=== PATIENT | male | born 1970 | race Caucasian/White ===

== ENCOUNTER 2017-04-08 09:30 | Emergency (ER) | payer MEDICARE ==
[~2017-04-08] VITALS: Ht 180.3 cm; Wt 162.4 kg
[~2017-04-08 09:30] MED LIST: ACCUPRIL5 MG PO; ADLT ASA LOW81 MG PO; ADVAIR DISK1 IN; ASA LO-DOSE81 MG OR; ASPIRIN ADULT L81 MG PO; ASPIRIN EC325 MG PO; BACTRIM DS1 TAB PO; COMBIVENT IN; COREG6.25 MG OR; COREG6.25 MG PO; DEPO-MEDROL80 MG/ML IM; DOCUSATE SOD100 MG PO; FLEXERIL OR; FLEXERIL PO; FLEXERIL5 MG PO; FLOMAX0.4 M1 PO; HUMALOG KW75 MG/25 K SC; INVANZ1 GM IV; KLOR-CON 1010 MEQ PO; LASIX40 MG PO; LEVEMIR FLEXPEN SC; LIPITOR10 MG OR; LISINOPRIL10 MG PO; LOMOTIL2.5 MG PO; LORTAB 10 OR; LORTAB 10-325 M1 TAB PO; LORTAB 1010 MG PO; LORTAB 5 OR; LORTAB 7.5 OR; LORTAB5 PO; NAPROSYN375 MG PO; NAPROSYN500 MG PO; NAPROXEN500 MG PO; NITROGLYCER0.4 MG SL; NITROSTAT0.4 MG PO; NOVOLIN 70/30 SC; ONDANSETRON4 MG PO; PENICILLN VK500 MG PO; PERCOCET 5/325M1 TAB OR; PRINIVIL20 MG OR; SERTRALINE50 MG PO; TAM75CAP OR; ULTRAM50 M1 PO; VENTOLIN HFA IN; WARFARIN10 MG PO; ZOFRAN ODT8 MG PO; [UNRECOGNIZED DRUG - REMARK] PO
[2017-04-08 10:12] LABS: URINE BLOOD DIPSTICK LARGE (NEGATIVE); URINE GLUCOSE - DIPSTICK NEGATIVE (NEGATIVE); URINE KETONE NEGATIVE (NEGATIVE); URINE LEUK ESTERASE NEGATIVE (NEGATIVE); URINE NITRITE - DIPSTICK NEGATIVE (Negative); URINE PROTEIN - DIPSTICK 100 mg/dL (NEG-TRACE); URINE SPECIFIC GRAVITY >=1.030; URINE UROBILINOGEN - DIPSTICK 0.2 E.U./dL (0.2)
[2017-04-08 10:15] LABS: URINE BILIRUBIN - DIPSTICK NEGATIVE (NEGATIVE); URINE CLARITY HAZY; URINE COLOR DK. YELLOW
[2017-04-08 10:20] LABS: ALBUMIN 3.7 g/dL (3.2-5.0); ALKALINE PHOSPHATASE 55 u/l (38-126); ANION GAP 15 (6-22 (CALC)); BILIRUBIN, TOTAL 0.4 mg/dL (0.0-1.4); BUN 10 mg/dL (9-20); BUN/CREATININE RATIO 8 (12-20 (CALC)); CALCIUM 8.9 mg/dL (8.4-10.2); CARBON DIOXIDE 25 mmol/l (22-30); CHLORIDE 105 mmol/l (95-108); CREATININE 1.2 mg/dL (0.7-1.3); GFR > 60 ML/MIN (>=60 (CALC)); GFR FOR AFR.AMER. > 60 ML/MIN (>=60 (CALC)); GLUCOSE 166 mg/dL (75-110); POTASSIUM 4.4 mmol/l (3.5-5.1); SGOT/AST 15 u/l (17-59); SGPT/ALT 38 u/l (21-72); SODIUM 141 mmol/l (137-146); TOTAL PROTEIN 6.9 g/dL (6.3-8.2)
[2017-04-08 10:22] LABS: URINE RBC 50-100 RBC/hpf (0-5); URINE WBC 0-2 WBC/hpf (0-5)
[2017-04-08 10:25] LABS: HEMATOCRIT 44.1 % (39.0-50.0); HEMOGLOBIN 15.3 g/dl (14.0-18.0); IMMATURE GRANULOCYTES 0.3 % (0.0-1.0); MEAN CELL VOLUME 85.6 fL CALC (80.0-100.0); MEAN CORPUSCULAR HGB 29.7 pG CALC (26.0-32.0); MEAN CORPUSCULAR HGB CONC 34.7 g/L CALC (32.0-36.0); NEUT# 5.98 thou/uL (1.82-7.42); RED BLOOD COUNT 5.15 mill/uL (4.70-6.10); RED CELL DISTRI WIDTH 12.9 % (11.5-15.5)
[2017-04-08] MEDS ORDERED: HUMULIN 70/30 SC ×2 (10:54)
[2017-04-08] MEDS ORDERED: TRULICITY0.75 MG/0. SC (10:57)
[2017-04-08] MEDS ORDERED: VENLAFAXINE HCL75 M1 PO (10:58)
[2017-04-08] MEDS ORDERED: LOSARTAN POT50 MG PO (11:00)
[2017-04-08] MEDS ORDERED: ULTRAM50 M1 PO (11:41)
[2017-04-08 11:44] VITALS: BP 162/75
== END 2017-04-08 11:56 | disposition home or self-care (01) ==
LOC: ED 09:30
PROVIDERS: Emergency Medicine
DX: R16.2 Hepatomegaly with splenomegaly, not elsewhere classified (principal); N21.0 Calculus in bladder; R10.32 Left lower quadrant pain; M54.5 Low back pain; Z87.442 Personal history of urinary calculi; F17.210 Nicotine dependence, cigarettes, uncomplicated
CPT/HCPCS: Q9967

== ENCOUNTER 2017-05-08 13:01 | Emergency (ER) | payer MEDICARE ==
[~2017-05-08] VITALS: Ht 180.3 cm; Wt 162.0 kg
[~2017-05-08 13:01] MED LIST changes: +HUMULIN 70/30 SC; +LOSARTAN POT50 MG PO; +TRULICITY0.75 MG/0. SC; +VENLAFAXINE HCL75 M1 PO
[2017-05-08 13:25] LABS: HEMATOCRIT 43.8 % (39.0-50.0); IMMATURE GRANULOCYTES 0.4 % (0.0-1.0); MEAN CELL VOLUME 85.7 fL CALC (80.0-100.0); MEAN CORPUSCULAR HGB 29.4 pG CALC (26.0-32.0); MEAN CORPUSCULAR HGB CONC 34.2 g/L CALC (32.0-36.0); NEUT# 8.8 thou/uL (1.82-7.42); RED BLOOD COUNT 5.11 mill/uL (4.70-6.10); RED CELL DISTRI WIDTH 12.6 % (11.5-15.5)
[2017-05-08 13:38] LABS: ALKALINE PHOSPHATASE 59 u/l (38-126); ANION GAP 12 (6-22 (CALC)); BILIRUBIN, TOTAL 0.7 mg/dL (0.0-1.4); BUN 7 mg/dL (9-20); BUN/CREATININE RATIO 9 (12-20 (CALC)); CALCIUM 9.2 mg/dL (8.4-10.2); CARBON DIOXIDE 29 mmol/l (22-30); CHLORIDE 98 mmol/l (95-108); CREATININE 0.8 mg/dL (0.7-1.3); GFR > 60 ML/MIN (>=60 (CALC)); GFR FOR AFR.AMER. > 60 ML/MIN (>=60 (CALC)); GLUCOSE 157 mg/dL (75-110); SGOT/AST 37 u/l (17-59); SGPT/ALT 38 u/l (21-72); SODIUM 135 mmol/l (137-146); TOTAL PROTEIN 7.6 g/dL (6.3-8.2)
[2017-05-08 13:50] LABS: MYOGLOBIN 160 ng/mL (0 - 121)
[2017-05-08 14:30] VITALS: BP 163/91
== END 2017-05-08 14:10 | disposition short-term general hospital (02) ==
LOC: ED 13:01
PROVIDERS: Emergency Medicine
DX: I21.09 ST elevation (STEMI) myocardial infarction involving other coronary artery of anterior wall (principal); E11.9 Type 2 diabetes mellitus without complications; J44.9 Chronic obstructive pulmonary disease, unspecified; I10 Essential (primary) hypertension; F17.210 Nicotine dependence, cigarettes, uncomplicated; Z86.718 Personal history of other venous thrombosis and embolism; Z86.73 Personal history of transient ischemic attack (TIA), and cerebral infarction without residual deficits; Z79.4 Long term (current) use of insulin
CPT/HCPCS: J1650

== ENCOUNTER 2018-01-14 08:40 | Emergency (ER) | payer MEDICARE ==
[~2018-01-14] VITALS: Ht 180.3 cm; Wt 160.0 kg
[2018-01-14] MEDS ORDERED: CEPHALEXIN500 M1 PO (08:50)
[2018-01-14] MEDS ORDERED: BACTRIM DS1 TAB PO (08:50)
[2018-01-14] MEDS ORDERED: LEVAQUIN750 M1 PO (08:50)
[2018-01-14 09:08] VITALS: BP 131/74
[2018-01-14] MEDS ORDERED: MOTRIN400 MG PO (09:23)
== END 2018-01-14 09:15 | disposition home or self-care (01) ==
LOC: ED 08:40
DX: S91.331A Puncture wound without foreign body, right foot, initial encounter (principal); W45.0XXA Nail entering through skin, initial encounter; Y93.89 Activity, other specified; Y92.219 Unspecified school as the place of occurrence of the external cause

== ENCOUNTER 2018-03-29 08:50 | Observation (INO) | payer MEDICARE, MEDICAID ==
[~2018-03-29] VITALS: Ht 180.3 cm; Wt 163.0 kg
[~2018-03-29 08:50] MED LIST changes: +CEPHALEXIN500 M1 PO; +LEVAQUIN750 M1 PO; +MOTRIN400 MG PO
[2018-03-29 09:12] LABS: HEMOGLOBIN 16.7 g/dl (14.0-18.0); IMMATURE GRANULOCYTES 0.3 % (0.0-1.0); MEAN CELL VOLUME 86.3 fL CALC (80.0-100.0); MEAN CORPUSCULAR HGB 28.6 pG CALC (26.0-32.0); MEAN CORPUSCULAR HGB CONC 33.2 g/L CALC (32.0-36.0); NEUT# 9.35 thou/uL (1.82-7.42); RED BLOOD COUNT 5.83 mill/uL (4.70-6.10); RED CELL DISTRI WIDTH 13.8 % (11.5-15.5)
[2018-03-29 09:13] LABS: HEMATOCRIT 50.3 % (39.0-50.0)
[2018-03-29 09:53] LABS: ANION GAP 12 (6-22 (CALC)); BUN 12 mg/dL (9-20); BUN/CREATININE RATIO 14 (12-20 (CALC)); CARBON DIOXIDE 28 mmol/l (22-30); CHLORIDE 100 mmol/l (95-108); CREATININE 0.8 mg/dL (0.7-1.3); GFR > 60 ML/MIN (>=60 (CALC)); GFR FOR AFR.AMER. > 60 ML/MIN (>=60 (CALC)); POTASSIUM 4.1 mmol/l (3.5-5.1); SODIUM 136 mmol/l (137-146)
[2018-03-29] MEDS ORDERED: ASPIRIN325 MG PO (10:11)
[2018-03-29] MEDS ORDERED: ATORVASTATIN CA80 MG PO (10:12)
[2018-03-29] MEDS ORDERED: ATROVENT H17 MCG/ACT IN (10:13)
[2018-03-29] MEDS ORDERED: CLOPIDOGREL75 MG PO (10:14)
[2018-03-29] MEDS ORDERED: COMBIVENT RESPIMAT IN (10:14)
[2018-03-29] MEDS ORDERED: ENTRESTO 49-511 TAB PO (10:16)
[2018-03-29] MEDS ORDERED: HUMULIN 70/30 K1 INJ SC (10:17)
[2018-03-29] MEDS ORDERED: LYRICA25 MG PO (10:19)
[2018-03-29] MEDS ORDERED: METO50TA52 PO (10:19)
[2018-03-29] MEDS ORDERED: RANITIDINE150 M1 PO (10:20)
[2018-03-29] MEDS ORDERED: TRULICITY1.5 MG/0.5 SC (10:21)
[2018-03-29] MEDS ORDERED: VENTOLIN HFA IN (10:25)
[2018-03-29 11:00] VITALS: BP 122/73
[2018-03-29 11:23] LABS: MAGNESIUM 1.4 mg/dL (1.6-2.3)
[2018-03-29 12:25] VITALS: BP 157/84
[2018-03-29 15:29] VITALS: BP 165/98
[2018-03-29 19:00] VITALS: BP 140/82
[2018-03-30 00:33] VITALS: BP 144/98
[2018-03-30 05:01] VITALS: BP 163/97
[2018-03-30 06:33] LABS: CHOLESTEROL HDL RATIO 3.7 (<4.4 (CALC))
[2018-03-30 07:36] VITALS: BP 169/96
[2018-03-30 08:25] LABS: HEMATOCRIT 50.9 % (39.0-50.0); HEMOGLOBIN 17.2 g/dl (14.0-18.0); IMMATURE GRANULOCYTES 0.4 % (0.0-1.0); MEAN CELL VOLUME 86.3 fL CALC (80.0-100.0); MEAN CORPUSCULAR HGB 29.2 pG CALC (26.0-32.0); MEAN CORPUSCULAR HGB CONC 33.8 g/L CALC (32.0-36.0); NEUT# 7.56 thou/uL (1.82-7.42); RED BLOOD COUNT 5.9 mill/uL (4.70-6.10); RED CELL DISTRI WIDTH 13.7 % (11.5-15.5)
[2018-03-30 08:58] VITALS: BP 169/96
== END 2018-03-30 12:05 | disposition home or self-care (01) ==
LOC: ED 08:50 → ED-I 09:15 → ED 10:12 → MS2 10:13
PROVIDERS: Family Medicine; Nurse Practitioner Family; ADMIT Internal Medicine; ATTEND Internal Medicine
DX: R07.89 Other chest pain (principal); I11.0 Hypertensive heart disease with heart failure; I50.9 Heart failure, unspecified; I25.10 Atherosclerotic heart disease of native coronary artery without angina pectoris; J44.9 Chronic obstructive pulmonary disease, unspecified; F17.210 Nicotine dependence, cigarettes, uncomplicated; I25.2 Old myocardial infarction; E11.65 Type 2 diabetes mellitus with hyperglycemia; E11.40 Type 2 diabetes mellitus with diabetic neuropathy, unspecified; Z68.43 Body mass index [BMI] 50.0-59.9, adult; Z79.84 Long term (current) use of oral hypoglycemic drugs; Z95.5 Presence of coronary angioplasty implant and graft; R06.2 Wheezing

== ENCOUNTER 2018-06-04 11:10 | Emergency (ER) | payer MEDICARE, MEDICAID ==
[~2018-06-04] VITALS: Ht 180.3 cm; Wt 163.6 kg
[~2018-06-04 11:10] MED LIST changes: +ASPIRIN325 MG PO; +ATORVASTATIN CA80 MG PO; +ATROVENT H17 MCG/ACT IN; +CLOPIDOGREL75 MG PO; +COMBIVENT RESPIMAT IN; +ENTRESTO 49-511 TAB PO; +HUMULIN 70/30 K1 INJ SC; +LYRICA25 MG PO; +METO50TA52 PO; +RANITIDINE150 M1 PO; +TRULICITY1.5 MG/0.5 SC
[2018-06-04] MEDS ORDERED: IBUPROFEN600 MG PO (15:39)
[2018-06-04] MEDS ORDERED: ORPHENADRINE100 MG PO (15:39)
[2018-06-04 16:47] VITALS: BP 177/86
== END 2018-06-04 16:57 | disposition home or self-care (01) ==
LOC: ED 11:10
DX: M54.6 Pain in thoracic spine (principal); I11.0 Hypertensive heart disease with heart failure; I50.9 Heart failure, unspecified; I25.10 Atherosclerotic heart disease of native coronary artery without angina pectoris; E11.9 Type 2 diabetes mellitus without complications; J44.9 Chronic obstructive pulmonary disease, unspecified; Z95.5 Presence of coronary angioplasty implant and graft; F17.210 Nicotine dependence, cigarettes, uncomplicated; E66.9 Obesity, unspecified; W01.0XXA Fall on same level from slipping, tripping and stumbling without subsequent striking against object, initial encounter; Y92.009 Unspecified place in unspecified non-institutional (private) residence as the place of occurrence of the external cause; Z91.81 History of falling

== ENCOUNTER 2018-09-03 07:54 | Emergency (ER) | payer MEDICARE ==
[~2018-09-03] VITALS: Ht 180.3 cm; Wt 163.6 kg
[~2018-09-03 07:54] MED LIST changes: +IBUPROFEN600 MG PO; +ORPHENADRINE100 MG PO
[2018-09-03] MEDS ORDERED: ATROVENT H17 MCG/ACT IN (08:35)
[2018-09-03 09:09] LABS: HEMATOCRIT 48.9 % (39.0-50.0); HEMOGLOBIN 16.5 g/dl (14.0-18.0); IMMATURE GRANULOCYTES 0.5 % (0.0-5.0); MEAN CELL VOLUME 87.9 fL CALC (80.0-100.0); MEAN CORPUSCULAR HGB 29.7 pG CALC (26.0-32.0); MEAN CORPUSCULAR HGB CONC 33.7 g/L CALC (32.0-36.0); NEUT# 5.68 thou/uL (1.82-7.42); RED BLOOD COUNT 5.56 mill/uL (4.70-6.10); RED CELL DISTRI WIDTH 13.3 % (11.5-15.5)
[2018-09-03 09:10] LABS: ALBUMIN 3.5 g/dL (3.2-5.0); BILIRUBIN, TOTAL 0.4 mg/dL (0.0-1.4); BUN 16 mg/dL (9-20); BUN/CREATININE RATIO 21 (12-20 (CALC)); C-REACTIVE PROTEIN 1.2 mg/dL (0-0.9); CARBON DIOXIDE 27 mmol/l (22-30); CHLORIDE 101 mmol/l (95-108); CREATININE 0.8 mg/dL (0.7-1.3); GFR > 60 ML/MIN (>=60 (CALC)); GFR FOR AFR.AMER. > 60 ML/MIN (>=60 (CALC)); SGOT/AST 17 u/l (17-59); SODIUM 136 mmol/l (137-146); TOTAL PROTEIN 6.9 g/dL (6.3-8.2)
[2018-09-03 09:13] LABS: ANION GAP 13 (6-22 (CALC))
[2018-09-03 09:14] LABS: ALKALINE PHOSPHATASE 89 u/l (38-126); POTASSIUM 5.2 mmol/l (3.5-5.1)
[2018-09-03] MEDS ORDERED: TORADOL PO (09:48)
[2018-09-03] MEDS ORDERED: CLEOCIN300 MG PO (09:48)
[2018-09-03 10:10] VITALS: BP 160/87
== END 2018-09-03 10:17 | disposition home or self-care (01) ==
LOC: ED 07:54
PROVIDERS: Emergency Medicine
DX: L03.032 Cellulitis of left toe (principal); E11.65 Type 2 diabetes mellitus with hyperglycemia; Z79.4 Long term (current) use of insulin; F17.210 Nicotine dependence, cigarettes, uncomplicated; I10 Essential (primary) hypertension
CPT/HCPCS: J0131

== ENCOUNTER 2018-12-03 18:36 | Emergency (ER) | payer MEDICARE ==
[~2018-12-03] VITALS: Ht 180.3 cm; Wt 159.1 kg
[~2018-12-03 18:36] MED LIST changes: +CLEOCIN300 MG PO; +TORADOL PO
[2018-12-03 19:30] LABS: HEMATOCRIT 46.5 % (39.0-50.0); IMMATURE GRANULOCYTES 0.3 % (0.0-5.0); MEAN CELL VOLUME 87.2 fL CALC (80.0-100.0); MEAN CORPUSCULAR HGB CONC 34.4 g/L CALC (32.0-36.0); NEUT# 6.48 thou/uL (1.82-7.42); RED BLOOD COUNT 5.33 mill/uL (4.70-6.10); RED CELL DISTRI WIDTH 13.2 % (11.5-15.5)
[2018-12-03 19:43] LABS: ALBUMIN 3.2 g/dL (3.2-5.0); ALKALINE PHOSPHATASE 81 u/l (38-126); ANION GAP 14 (6-22 (CALC)); BILIRUBIN, TOTAL 0.5 mg/dL (0.0-1.4); BUN 12 mg/dL (9-20); BUN/CREATININE RATIO 16 (12-20 (CALC)); CARBON DIOXIDE 26 mmol/l (22-30); CHLORIDE 101 mmol/l (95-108); CREATININE 0.8 mg/dL (0.7-1.3); GFR > 60 ML/MIN (>=60 (CALC)); GFR FOR AFR.AMER. > 60 ML/MIN (>=60 (CALC)); POTASSIUM 3.9 mmol/l (3.5-5.1); SGOT/AST 10 u/l (17-59); SODIUM 137 mmol/l (137-146); TOTAL PROTEIN 6.1 g/dL (6.3-8.2)
[2018-12-03 19:53] LABS: ACT PARTIAL THROMBO TIME 25.4 SECONDS (20.0-32.5)
[2018-12-03 19:55] LABS: PROTHROMBIN TIME 10.5 SECONDS (9.0-12.5)
[2018-12-03 20:07] VITALS: BP 176/97
== END 2018-12-03 20:07 | disposition home or self-care (01) ==
LOC: ED 18:36
PROVIDERS: Family Medicine
DX: R04.0 Epistaxis (principal); I25.10 Atherosclerotic heart disease of native coronary artery without angina pectoris; E11.9 Type 2 diabetes mellitus without complications; J44.9 Chronic obstructive pulmonary disease, unspecified; I11.0 Hypertensive heart disease with heart failure; I50.9 Heart failure, unspecified; F17.210 Nicotine dependence, cigarettes, uncomplicated; Z95.5 Presence of coronary angioplasty implant and graft

== ENCOUNTER 2019-03-16 08:41 | Emergency (ER) | payer MEDICARE, MEDICAID ==
[~2019-03-16] VITALS: Ht 180.3 cm; Wt 172.2 kg
[2019-03-16 09:17] LABS: HEMATOCRIT 46.2 % (39.0-50.0); HEMOGLOBIN 15.2 g/dl (14.0-18.0); IMMATURE GRANULOCYTES 0.5 % (0.0-5.0); MEAN CELL VOLUME 90.2 fL CALC (80.0-100.0); MEAN CORPUSCULAR HGB 29.7 pG CALC (26.0-32.0); MEAN CORPUSCULAR HGB CONC 32.9 g/L CALC (32.0-36.0); NEUT# 5.34 thou/uL (1.82-7.42); RED BLOOD COUNT 5.12 mill/uL (4.70-6.10)
[2019-03-16 09:30] VITALS: BP 168/77
[2019-03-16 09:41] LABS: ALBUMIN 3.3 g/dL (3.2-5.0); ALKALINE PHOSPHATASE 78 u/l (38-126); BILIRUBIN, TOTAL 0.4 mg/dL (0.0-1.4); BUN 9 mg/dL (9-20); BUN/CREATININE RATIO 11 (12-20 (CALC)); CARBON DIOXIDE 26 mmol/l (22-30); CHLORIDE 101 mmol/l (95-108); CREATININE 0.8 mg/dL (0.7-1.3); GFR > 60 ML/MIN (>=60 (CALC)); GFR FOR AFR.AMER. > 60 ML/MIN (>=60 (CALC)); SGOT/AST 12 u/l (17-59); SODIUM 136 mmol/l (137-146); TOTAL PROTEIN 6.1 g/dL (6.3-8.2)
[2019-03-16 09:44] LABS: ANION GAP 14 (6-22 (CALC))
[2019-03-16 09:45] LABS: POTASSIUM 4.7 mmol/l (3.5-5.1)
[2019-03-16] MEDS ORDERED: DOXYCYCL HYC100 MG PO (10:00)
== END 2019-03-16 10:26 | disposition home or self-care (01) ==
LOC: ED 08:41
PROVIDERS: Family Medicine
DX: L03.116 Cellulitis of left lower limb (principal); I87.8 Other specified disorders of veins; M79.662 Pain in left lower leg; F17.200 Nicotine dependence, unspecified, uncomplicated; E11.9 Type 2 diabetes mellitus without complications; Z79.4 Long term (current) use of insulin; W22.8XXA Striking against or struck by other objects, initial encounter; Y92.009 Unspecified place in unspecified non-institutional (private) residence as the place of occurrence of the external cause

== ENCOUNTER 2019-12-21 | Emergency (ER) | payer MEDICARE, MEDICAID ==
[~2019-12-21] MED LIST changes: +DOXYCYCL HYC100 MG PO; -METO50TA52 PO; +TOPROL XL50 MG PO
[2019-12-21] MEDS ORDERED: KEFLEX500 M1 PO (10:28)
[2019-12-21] MEDS ORDERED: VOLTAREN - GENE75 MG PO (10:28)
== END 2019-12-21 11:12 | disposition home or self-care (01) ==
DX: L03.012 Cellulitis of left finger (principal); M77.9 Enthesopathy, unspecified; S61.215A Laceration without foreign body of left ring finger without damage to nail, initial encounter; I25.10 Atherosclerotic heart disease of native coronary artery without angina pectoris; I11.0 Hypertensive heart disease with heart failure; I50.9 Heart failure, unspecified; J44.9 Chronic obstructive pulmonary disease, unspecified; E11.9 Type 2 diabetes mellitus without complications; F17.200 Nicotine dependence, unspecified, uncomplicated; X58.XXXA Exposure to other specified factors, initial encounter; Z79.4 Long term (current) use of insulin

== ENCOUNTER 2020-01-21 | Emergency (ER) | payer MEDICARE, MEDICAID ==
[~2020-01-21] MED LIST changes: +KEFLEX500 M1 PO; +VOLTAREN - GENE75 MG PO
[2020-01-21] MEDS ORDERED: TOUJEO MAX300 UNIT/M SC (12:47)
[2020-01-21] MEDS ORDERED: METFORMIN500 M2 PO (12:47)
[2020-01-21] MEDS ORDERED: AMOXICILLIN875 MG PO (13:53)
--- NOTE | 2020-01-26 09:08 | NUR ---
Notified patient of Covid results (Negative). Advised patient to follow up with PCP or return to ED with urgent needs. Advised pt to continue practicing Covid prevention including social distancing and hand washing.
== END 2020-01-21 14:03 | disposition home or self-care (01) ==
DX: J02.9 Acute pharyngitis, unspecified (principal); J44.9 Chronic obstructive pulmonary disease, unspecified; I11.0 Hypertensive heart disease with heart failure; I50.9 Heart failure, unspecified; E11.9 Type 2 diabetes mellitus without complications; I25.10 Atherosclerotic heart disease of native coronary artery without angina pectoris; F17.210 Nicotine dependence, cigarettes, uncomplicated; Z20.828 Contact with and (suspected) exposure to other viral communicable diseases

== ENCOUNTER 2020-04-12 15:36 | Emergency (ER) | payer MEDICARE, MEDICAID ==
[~2020-04-12] VITALS: Ht 180.3 cm; Wt 163.6 kg
[~2020-04-12 15:36] MED LIST changes: +AMOXICILLIN875 MG PO; +METFORMIN500 M2 PO; +TOUJEO MAX300 UNIT/M SC
[2020-04-12] MEDS ORDERED: PREGABALIN150 MG PO (16:51)
[2020-04-12] MEDS ORDERED: GLIMEPIRIDE4 MG PO (16:53)
[2020-04-12] MEDS ORDERED: GLYXAMBI 25-5 M1 TAB PO (16:54)
[2020-04-12] MEDS ORDERED: OMEPRAZOLE DR20 MG PO (16:55)
[2020-04-12] MEDS ORDERED: MONTELUKAST SOD10 MG PO (16:55)
[2020-04-12] MEDS ORDERED: LEVOCETIRIZINE D5 MG PO (16:58)
[2020-04-12] MEDS ORDERED: EC ASPIRIN325 MG PO (16:59)
[2020-04-12] MEDS ORDERED: HYDROCO/APAP1 TA9 PO ×2 (18:09)
[2020-04-12 18:15] VITALS: BP 131/71
== END 2020-04-12 18:15 | disposition home or self-care (01) ==
LOC: ED 15:36
DX: M25.562 Pain in left knee (principal); M25.561 Pain in right knee; I11.0 Hypertensive heart disease with heart failure; I50.9 Heart failure, unspecified; E11.9 Type 2 diabetes mellitus without complications; J44.9 Chronic obstructive pulmonary disease, unspecified; I25.10 Atherosclerotic heart disease of native coronary artery without angina pectoris; F17.210 Nicotine dependence, cigarettes, uncomplicated; W18.30XA Fall on same level, unspecified, initial encounter; Y92.000 Kitchen of unspecified non-institutional (private) residence as the place of occurrence of the external cause; Z79.4 Long term (current) use of insulin; Z95.5 Presence of coronary angioplasty implant and graft

== ENCOUNTER 2020-05-26 12:21 | Emergency (ER) | payer MEDICARE, MEDICAID ==
[~2020-05-26] VITALS: Ht 180.3 cm; Wt 164.5 kg
[~2020-05-26 12:21] MED LIST changes: +EC ASPIRIN325 MG PO; +GLIMEPIRIDE4 MG PO; +GLYXAMBI 25-5 M1 TAB PO; +HYDROCO/APAP1 TA9 PO; +LEVOCETIRIZINE D5 MG PO; +MONTELUKAST SOD10 MG PO; +OMEPRAZOLE DR20 MG PO; +PREGABALIN150 MG PO
[2020-05-26] MEDS ORDERED: ASPIRIN 81 LOW81 MG PO (12:40)
[2020-05-26 13:48] LABS: HEMATOCRIT 44.2 % (39.0-50.0); HEMOGLOBIN 14.5 g/dl (14.0-18.0); IMMATURE GRANULOCYTES 0.4 % (0.0-5.0); MEAN CELL VOLUME 93.6 fL CALC (80.0-100.0); MEAN CORPUSCULAR HGB 30.7 pG CALC (26.0-32.0); MEAN CORPUSCULAR HGB CONC 32.8 g/dL CAL (32.0-36.0); NEUT# 9.16 thou/uL (1.82-7.42); RED BLOOD COUNT 4.72 mill/uL (4.70-6.10); RED CELL DISTRI WIDTH 14.7 % (11.5-15.5)
[2020-05-26 14:06] LABS: ALBUMIN 3.9 g/dL (3.2-5.0); ALKALINE PHOSPHATASE 64 u/l (38-126); ANION GAP 12 (6-22 (CALC)); BILIRUBIN, TOTAL 0.3 mg/dL (0.0-1.4); BUN 8 mg/dL (9-20); BUN/CREATININE RATIO 11 (12-20 (CALC)); CARBON DIOXIDE 28 mmol/l (22-30); CHLORIDE 101 mmol/l (95-108); CREATININE 0.8 mg/dL (0.7-1.3); GFR > 60 ML/MIN (>=60 (CALC)); GFR FOR AFR.AMER. > 60 ML/MIN (>=60 (CALC)); POTASSIUM 3.9 mmol/l (3.5-5.1); SGOT/AST 12 u/l (17-59); SODIUM 136 mmol/l (137-146); TOTAL PROTEIN 7.2 g/dL (6.3-8.2)
[2020-05-26 14:07] LABS: ACT PARTIAL THROMBO TIME 24.3 SECONDS (20.0-32.5); PROTHROMBIN TIME 9.7 SECONDS (9.0-12.5)
[2020-05-26] MEDS ORDERED: BACTRIM DS1 TAB PO (15:55)
[2020-05-26] MEDS ORDERED: KEFLEX500 MG PO (15:55)
[2020-05-26 16:25] VITALS: BP 144/73
== END 2020-05-26 16:25 | disposition home or self-care (01) ==
LOC: ED 12:21
DX: L03.116 Cellulitis of left lower limb (principal); S80.812A Abrasion, left lower leg, initial encounter; S90.812A Abrasion, left foot, initial encounter; S90.811A Abrasion, right foot, initial encounter; I11.0 Hypertensive heart disease with heart failure; I50.9 Heart failure, unspecified; E11.9 Type 2 diabetes mellitus without complications; I25.10 Atherosclerotic heart disease of native coronary artery without angina pectoris; J44.9 Chronic obstructive pulmonary disease, unspecified; F17.210 Nicotine dependence, cigarettes, uncomplicated; W22.03XA Walked into furniture, initial encounter; Y92.009 Unspecified place in unspecified non-institutional (private) residence as the place of occurrence of the external cause; Z79.02 Long term (current) use of antithrombotics/antiplatelets; Z79.4 Long term (current) use of insulin; Z95.5 Presence of coronary angioplasty implant and graft

== ENCOUNTER 2020-07-26 07:50 | Emergency (ER) | payer MEDICARE, MEDICAID ==
[~2020-07-26] VITALS: Ht 180.3 cm; Wt 155.0 kg
[~2020-07-26 07:50] MED LIST changes: +ASPIRIN 81 LOW81 MG PO; +KEFLEX500 MG PO
[2020-07-26] MEDS ORDERED: DEXAMETHASON4 MG PO (09:40)
[2020-07-26] MEDS ORDERED: ZITHROMAX250 MG PO (09:40)
[2020-07-26 10:00] VITALS: BP 148/88
--- NOTE | 2020-07-30 09:35 | NUR ---
Patient called for Covid results. Notifed patient of negative Covid results. Patient requested a copy of his results. Verbal authorization given by phone to place a copy of his results at the frontend engineer for [facility].
== END 2020-07-26 10:00 | disposition home or self-care (01) ==
LOC: ED 07:50
DX: J18.9 Pneumonia, unspecified organism (principal); J44.0 Chronic obstructive pulmonary disease with (acute) lower respiratory infection; I11.0 Hypertensive heart disease with heart failure; I50.9 Heart failure, unspecified; E11.9 Type 2 diabetes mellitus without complications; I25.10 Atherosclerotic heart disease of native coronary artery without angina pectoris; F17.210 Nicotine dependence, cigarettes, uncomplicated; Z95.5 Presence of coronary angioplasty implant and graft; Z79.4 Long term (current) use of insulin; Z20.828 Contact with and (suspected) exposure to other viral communicable diseases

== ENCOUNTER 2021-04-11 17:18 | Emergency (ER) | payer MEDICARE, MEDICAID ==
[~2021-04-11] VITALS: Ht 180.3 cm; Wt 163.0 kg
[~2021-04-11 17:18] MED LIST changes: +DEXAMETHASON4 MG PO; -GLIMEPIRIDE4 MG PO; +ZITHROMAX250 MG PO
[2021-04-11] MEDS ORDERED: ULTRAM50 M1 PO (17:59)
[2021-04-11] MEDS ORDERED: KEFLEX500 MG PO (17:59)
[2021-04-11] MEDS ORDERED: MECLIZINE25 MG PO (18:02)
[2021-04-11] MEDS ORDERED: JARDIANCE25 MG (18:02)
[2021-04-11] MEDS ORDERED: GLIMEPIRIDE4 MG PO (18:03)
[2021-04-11 18:06] VITALS: BP 135/93
== END 2021-04-11 18:12 | disposition home or self-care (01) ==
LOC: ED 17:18
DX: S63.92XA Sprain of unspecified part of left wrist and hand, initial encounter (principal); S81.802A Unspecified open wound, left lower leg, initial encounter; L03.116 Cellulitis of left lower limb; E11.9 Type 2 diabetes mellitus without complications; I11.0 Hypertensive heart disease with heart failure; I50.9 Heart failure, unspecified; I25.10 Atherosclerotic heart disease of native coronary artery without angina pectoris; J44.9 Chronic obstructive pulmonary disease, unspecified; F17.200 Nicotine dependence, unspecified, uncomplicated; W10.9XXA Fall (on) (from) unspecified stairs and steps, initial encounter; Y92.009 Unspecified place in unspecified non-institutional (private) residence as the place of occurrence of the external cause; Z95.5 Presence of coronary angioplasty implant and graft; Z79.4 Long term (current) use of insulin

== ENCOUNTER 2021-06-13 16:59 | Emergency (ER) | payer MEDICARE, MEDICAID ==
[~2021-06-13] VITALS: Ht 180.3 cm; Wt 164.0 kg
[~2021-06-13 16:59] MED LIST changes: +GLIMEPIRIDE4 MG PO; +JARDIANCE25 MG; +MECLIZINE25 MG PO
[2021-06-13] MEDS ORDERED: ZITHROMAX500 MG PO (19:16)
[2021-06-13 19:19] VITALS: BP 129/80
== END 2021-06-13 19:19 | disposition home or self-care (01) ==
LOC: ED 16:59
DX: J44.1 Chronic obstructive pulmonary disease with (acute) exacerbation (principal); B34.9 Viral infection, unspecified; I11.0 Hypertensive heart disease with heart failure; I50.9 Heart failure, unspecified; E11.9 Type 2 diabetes mellitus without complications; I25.10 Atherosclerotic heart disease of native coronary artery without angina pectoris; E66.9 Obesity, unspecified; F17.210 Nicotine dependence, cigarettes, uncomplicated; Z95.5 Presence of coronary angioplasty implant and graft; Z79.4 Long term (current) use of insulin; Z20.822 Contact with and (suspected) exposure to COVID-19

== ENCOUNTER 2021-08-28 14:51 | Emergency (ER) | payer MEDICARE, MEDICAID ==
[~2021-08-28] VITALS: Ht 180.3 cm; Wt 120.0 kg
[~2021-08-28 14:51] MED LIST changes: +ZITHROMAX500 MG PO
[2021-08-28 16:38] LABS: HEMATOCRIT 46.8 % (39.0-50.0); IMMATURE GRANULOCYTES 0.3 % (0.0-5.0); MEAN CELL VOLUME 92.7 fL CALC (80.0-100.0); MEAN CORPUSCULAR HGB 31.7 pG CALC (26.0-32.0); MEAN CORPUSCULAR HGB CONC 34.2 g/dL CAL (32.0-36.0); NEUT# 7.92 thou/uL (1.82-7.42); RED BLOOD COUNT 5.05 mill/uL (4.70-6.10); RED CELL DISTRI WIDTH 13.1 % (11.5-15.5)
[2021-08-28 16:50] LABS: ALBUMIN 4.2 g/dL (3.2-5.0); ALKALINE PHOSPHATASE 68 u/l (38-126); ANION GAP 11 (6-22 (CALC)); BUN 9 mg/dL (9-20); BUN/CREATININE RATIO 11 (12-20 (CALC)); CARBON DIOXIDE 30 mmol/l (22-30); CHLORIDE 99 mmol/l (95-108); CREATININE 0.9 mg/dL (0.7-1.3); GFR > 60 ML/MIN (>=60 (CALC)); GFR FOR AFR.AMER. > 60 ML/MIN (>=60 (CALC)); SGOT/AST 17 u/l (17-59); SODIUM 136 mmol/l (137-146); TOTAL PROTEIN 7.8 g/dL (6.3-8.2)
[2021-08-28 17:03] LABS: BILIRUBIN, TOTAL 0.7 mg/dL (0.0-1.4)
[2021-08-28] MEDS ORDERED: PREDNISONE50 MG PO (18:31)
[2021-08-28] MEDS ORDERED: ZPAK PO (18:31)
[2021-08-28] MEDS ORDERED: AMOX/K CLAV875 M1 PO (18:31)
[2021-08-28 19:10] VITALS: BP 146/88
== END 2021-08-28 19:20 | disposition home or self-care (01) ==
LOC: ED 14:51
PROVIDERS: Family Medicine
DX: J44.1 Chronic obstructive pulmonary disease with (acute) exacerbation (principal); I11.0 Hypertensive heart disease with heart failure; I50.9 Heart failure, unspecified; E11.9 Type 2 diabetes mellitus without complications; I25.10 Atherosclerotic heart disease of native coronary artery without angina pectoris; F17.200 Nicotine dependence, unspecified, uncomplicated; Z95.5 Presence of coronary angioplasty implant and graft; Z79.84 Long term (current) use of oral hypoglycemic drugs; Z79.4 Long term (current) use of insulin; Z20.822 Contact with and (suspected) exposure to COVID-19